=== PATIENT | female | born 1990 | race Caucasian/White ===

== ENCOUNTER 2016-08-25 23:30 | Emergency (ER) | payer OTHER ==
[~2016-08-25] VITALS: Ht 170.2 cm; Wt 59.7 kg
[~2016-08-25 23:30] MED LIST: ACID CONTROLLER20 MG PO; ADDERALL XR25 MG PO; ATARAX,VISTARIL50 MG PO; ATIVAN0.5 MG PO; BENZTROPINE ME0.5 MG PO; BENZTROPINE MESY1 MG PO; CARAFATE1 GM PO; CYMBALTA20 MG PO; FLEXERIL10 MG PO; GEODON60 MG PO; GEODON80 MG PO; HYDROXYZINE PAM50 MG PO; LEXAPRO20 MG PO; LITHATE5 MG PO; LITHIUM CARBON300 MG PO; LORATADINE10 M2; LORATADINE10 M2 PO; LORAZEPAM0.5 MG PO; MECLIZINE HCL25 MG PO; PEPCID20 MG PO; RISPERDAL1 MG PO; RISPERDAL2 MG PO; RISPERIDONE2 MG PO; SUMATRIPTAN SU100 MG PO; TOPAMAX100 MG PO; TOPIRAMATE100 MG PO; TOPIRAMATE25 MG PO; TRAZODONE HCL50 MG PO; ZANTAC150 MG PO; ZIPRASIDONE HCL40 MG PO; ZIPRASIDONE HCL60 MG PO; ZIPRASIDONE HCL80 MG PO; ZOLPIDEM TARTRA10 MG PO
[2016-08-26 00:18] LABS: CHLORIDE 107 mEq/L (99-109); POTASSIUM 4.2 mEq/L (3.7-5.4); SODIUM 141 mEq/L (136-147)
[2016-08-26 00:20] LABS: GLUCOSE 113 mg/dL (70-99)
[2016-08-26 00:21] LABS: ANION GAP 12 MEQ/L (2-14)
[2016-08-26 00:24] LABS: GFR ESTIMATE (CALCULATED) > 59 mL/min/
[2016-08-26 00:25] LABS: UREA NITROGEN (BUN) 10 mg/dL (9-23)
[2016-08-26 00:28] LABS: WHITE BLOOD COUNT 8.6 K/uL (4.1-10.2)
[2016-08-26 00:29] LABS: MCV 82.6 FL (83-99); MEAN PLAT.VOLUME 11.7 uM^3 (9.5-12.4); PLATELET COUNT 199 K/uL (156-360); RBC DIS.WIDTH-CV 11.8 % (11.8-14.6); RED BLOOD COUNT 4.59 M/uL (3.80-5.20)
[2016-08-26 00:30] LABS: TROP-I INTERPRETATION NEGATIVE; TROPONIN-I < 0.01 ng/mL (0.0-0.30)
[2016-08-26 00:38] LABS: HEMATOCRIT 38.1 % (36.0-46.0); MCH 30.4 PG (29.0-34.0); MCHC 36.7 G/DL (30.0-36.0)
[2016-08-26] MEDS ORDERED: REGLAN10 MG PO (02:31)
[2016-08-26 02:41] VITALS: BP 129/74
== END 2016-08-26 02:42 | disposition home or self-care (01) ==
LOC: RME 23:30 → EME 23:30 → RME 08-26 02:42
DX: F41.1 Generalized anxiety disorder (principal); R07.9 Chest pain, unspecified; R20.2 Paresthesia of skin; R51 Headache
CPT/HCPCS: 70450; 71020; 80048; 84484; 85027; 93005; 99281; 99284

== ENCOUNTER → 2016-08-27 | Outpatient (CLI) | payer OTHER ==
[~2016-08-27] VITALS: Ht 162.6 cm; Wt 59.9 kg
[~2016-08-27] MED LIST changes: +REGLAN10 MG PO
== END | disposition home or self-care (01) ==
LOC: AMB 13:23
PROC: 0DB68ZX Excision of Stomach, Via Natural or Artificial Opening Endoscopic, Diagnostic (ICD-10-PCS; principal; 2016-08-27)
DX: K29.70 Gastritis, unspecified, without bleeding (principal); R10.13 Epigastric pain; R14.2 Eructation; G40.909 Epilepsy, unspecified, not intractable, without status epilepticus
CPT/HCPCS: 88305; 88342 TC; B4087; J2250

== ENCOUNTER 2016-12-23 21:11 | Emergency (ER) | payer OTHER ==
[~2016-12-23] VITALS: Ht 170.2 cm; Wt 61.3 kg
[2016-12-23 21:54] LABS: ADD MIUA? YES; BILIRUBIN NEGATIVE; BLOOD NEGATIVE; COLOR STRAW ((YELLOW)); GLUCOSE (STRIP) NEGATIVE; KETONES NEGATIVE; LEUKOCYTES TRACE; NITRITE NEGATIVE; PROTEIN (STRIP) NEGATIVE; SPECIFIC GRAVITY 1.004 (1.000-1.030); UROBILINOGEN 0.2 MG/DL (0.2-1.0)
[2016-12-23 22:03] LABS: HEMATOCRIT 41.6 % (36.0-46.0); MCH 29.5 PG (29.0-34.0); MCHC 34.4 G/DL (30.0-36.0); MCV 85.8 FL (83-99); MEAN PLAT.VOLUME 11.4 uM^3 (9.5-12.4); PLATELET COUNT 186 K/uL (156-360); RBC DIS.WIDTH-CV 12.2 % (11.8-14.6); RBC DIS.WIDTH-SD 38.1 % (39-53); RED BLOOD COUNT 4.85 M/uL (3.80-5.20); WHITE BLOOD COUNT 10.2 K/uL (4.1-10.2)
[2016-12-23 22:11] LABS: CHLORIDE 105 mEq/L (99-109); POTASSIUM 3.8 mEq/L (3.7-5.4); SODIUM 138 mEq/L (136-147)
[2016-12-23 22:13] LABS: GLUCOSE 120 mg/dL (70-99)
[2016-12-23 22:14] LABS: ANION GAP 9 MEQ/L (2-14)
[2016-12-23 22:17] LABS: GFR ESTIMATE (CALCULATED) > 59 mL/min/
[2016-12-23 22:18] LABS: UREA NITROGEN (BUN) 6 mg/dL (9-23)
[2016-12-23 22:19] LABS: BACTERIA RARE /HPF; EPITHELIAL CELLS NONE SEEN /HPF; MUCUS NONE SEEN /LPF; RED BLOOD CELLS 0-5 /HPF (0-5); UCUL ADDED? NO; WHITE BLOOD CELLS 0-5 /HPF (0-5)
[2016-12-23 22:25] LABS: QUANTITATIVE HCG < 4.0 MIU/ML
[2016-12-24 00:53] VITALS: BP 137/98
== END 2016-12-24 00:31 | disposition home or self-care (01) ==
LOC: EME 21:11
PROVIDERS: Physician Assistant
DX: G40.909 Epilepsy, unspecified, not intractable, without status epilepticus (principal); Z88.1 Allergy status to other antibiotic agents; F25.9 Schizoaffective disorder, unspecified; F31.9 Bipolar disorder, unspecified
CPT/HCPCS: 80048; 81003; 84702; 85027; 99281; 99284; J2060

== ENCOUNTER 2017-01-03 21:46 | Emergency (ER) | payer OTHER ==
[~2017-01-03] VITALS: Ht 170.2 cm; Wt 62.7 kg
[2017-01-04] MEDS ORDERED: MEDROL DOSEPAK4 MG PO (00:24)
[2017-01-04 00:46] VITALS: BP 123/89
== END 2017-01-04 00:47 | disposition home or self-care (01) ==
LOC: EME 21:46
DX: M54.5 Low back pain (principal); G89.29 Other chronic pain; M79.604 Pain in right leg; M79.605 Pain in left leg; R11.0 Nausea
CPT/HCPCS: 99281; 99284

== ENCOUNTER → 2017-03-01 | Outpatient (CLI) | payer OTHER ==
[~2017-03-01] MED LIST changes: +MEDROL DOSEPAK4 MG PO
== END | disposition home or self-care (01) ==
LOC: NUC 07:51
DX: K31.84 Gastroparesis (principal)
CPT/HCPCS: 78264; A9541

== ENCOUNTER 2017-04-14 19:39 | Emergency (ER) | payer OTHER ==
[~2017-04-14] VITALS: Ht 170.2 cm; Wt 64.9 kg
[2017-04-14 20:26] LABS: HEMATOCRIT 38.7 % (36.0-46.0); MCH 29.5 PG (29.0-34.0); MCHC 34.4 G/DL (30.0-36.0); MCV 85.8 FL (83-99); MEAN PLAT.VOLUME 11.8 uM^3 (9.5-12.4); PLATELET COUNT 194 K/uL (156-360); RBC DIS.WIDTH-CV 11.8 % (11.8-14.6); RBC DIS.WIDTH-SD 36.5 % (39-53); RED BLOOD COUNT 4.51 M/uL (3.80-5.20); WHITE BLOOD COUNT 9.9 K/uL (4.1-10.2)
[2017-04-14 20:43] LABS: CHLORIDE 109 mEq/L (99-109); POTASSIUM 3.6 mEq/L (3.7-5.4); SODIUM 140 mEq/L (136-147)
[2017-04-14 20:45] LABS: GLUCOSE 125 mg/dL (70-99)
[2017-04-14 20:46] LABS: ANION GAP 8 MEQ/L (2-14)
[2017-04-14 20:47] LABS: TROP-I INTERPRETATION NEGATIVE; TROPONIN-I < 0.01 ng/mL (0.0-0.30)
[2017-04-14 20:49] LABS: GFR ESTIMATE (CALCULATED) > 59 mL/min/; UREA NITROGEN (BUN) 8 mg/dL (9-23)
[2017-04-14 21:53] LABS: D-DIMER ELISA < 150.00 ng/mLDDU (<230)
[2017-04-14 23:30] LABS: TROP-I INTERPRETATION NEGATIVE; TROPONIN-I < 0.01 ng/mL (0.0-0.30)
[2017-04-14] MEDS ORDERED: INDOCIN25 MG PO (23:39)
[2017-04-14] MEDS ORDERED: VALIUM5 MG PO (23:39)
[2017-04-15 00:06] VITALS: BP 138/93
== END 2017-04-15 00:11 | disposition home or self-care (01) ==
LOC: EME 19:39
PROVIDERS: Physician Assistant
DX: R07.89 Other chest pain (principal); M62.830 Muscle spasm of back; R06.02 Shortness of breath
CPT/HCPCS: 71020; 80048; 84484; 85027; 85379; 93005; 99281; 99284

== ENCOUNTER 2017-05-17 15:00 | Emergency (ER) | payer OTHER ==
[~2017-05-17] VITALS: Ht 170.2 cm; Wt 65.8 kg
[~2017-05-17 15:00] MED LIST changes: +INDOCIN25 MG PO; +VALIUM5 MG PO
[2017-05-17 22:14] LABS: ADD MIUA? NO; BILIRUBIN NEGATIVE; BLOOD NEGATIVE; COLOR STRAW ((YELLOW)); GLUCOSE (STRIP) NEGATIVE; KETONES NEGATIVE; LEUKOCYTES NEGATIVE; NITRITE NEGATIVE; PROTEIN (STRIP) NEGATIVE; SPECIFIC GRAVITY 1.005 (1.000-1.030); UROBILINOGEN 0.2 MG/DL (0.2-1.0)
[2017-05-17 22:20] LABS: HEMATOCRIT 37.4 % (36.0-46.0); MCH 29.7 PG (29.0-34.0); MCHC 34.5 G/DL (30.0-36.0); MEAN PLAT.VOLUME 12.2 uM^3 (9.5-12.4); PLATELET COUNT 178 K/uL (156-360); RBC DIS.WIDTH-CV 11.9 % (11.8-14.6); RBC DIS.WIDTH-SD 37.2 % (39-53); RED BLOOD COUNT 4.35 M/uL (3.80-5.20); WHITE BLOOD COUNT 8.2 K/uL (4.1-10.2)
[2017-05-17 22:21] LABS: CHLORIDE 110 mEq/L (99-109); POTASSIUM 3.7 mEq/L (3.7-5.4); SODIUM 140 mEq/L (136-147)
[2017-05-17 22:24] LABS: GLUCOSE 114 mg/dL (70-99)
[2017-05-17 22:24] LABS: AMPHETAMINE NEGATIVE (500 ng/mL); BARBITURATES NEGATIVE (200 ng/mL); BENZODIAZEPINES NEGATIVE (150 ng/mL); COCAINE NEGATIVE (150 ng/mL); INTERNAL CONTROLS VALID? YES; METHADONE NEGATIVE (200 ng/mL); METHAMPHETAMINE NEGATIVE (500 ng/mL); OPIATES (MORPHINE) NEGATIVE (100 ng/mL); OXYCODONE NEGATIVE (100 ng/mL); PHENCYCLIDINE NEGATIVE (25 ng/mL); PROPOXYPHENE NEGATIVE (300 ng/mL); THC CANNABINOIDS NEGATIVE (50 ng/mL); TRICYCLIC ANTIDEPRESSANTS NEGATIVE (300 ng/mL)
[2017-05-17 22:25] LABS: ANION GAP 6 MEQ/L (2-14); TOTAL BILIRUBIN 0.2 mg/dL (0.0-1.0)
[2017-05-17 22:26] LABS: SERUM ETHYL ALCOHOL < 10 mg/dL
[2017-05-17 22:27] LABS: ALKALINE PHOSPHATASE 63 IU/L (3-129); GFR ESTIMATE (CALCULATED) > 59 mL/min/
[2017-05-17 22:28] LABS: UREA NITROGEN (BUN) 8 mg/dL (9-23)
[2017-05-17 22:38] LABS: QUANTITATIVE HCG < 4.0 MIU/ML
[2017-05-17] MEDS ORDERED: KEPPRA250 MG PO (22:44)
[2017-05-17] MEDS ORDERED: NORCO 5/3251 TABLET PO (22:45)
[2017-05-17] MEDS ORDERED: PERCOCET 5/31 TABLET PO (22:46)
[2017-05-17] MEDS ORDERED: CLEOCIN300 MG PO (22:47)
[2017-05-18 13:41] VITALS: BP 101/67
== END 2017-05-18 13:43 ==
LOC: EME 15:00
PROVIDERS: Emergency Medicine
DX: F41.9 Anxiety disorder, unspecified (principal); R45.851 Suicidal ideations; F25.9 Schizoaffective disorder, unspecified; G40.89 Other seizures; F90.9 Attention-deficit hyperactivity disorder, unspecified type; K21.9 Gastro-esophageal reflux disease without esophagitis
CPT/HCPCS: 80053; 81003; 84702; 85027; 90837; 99281; 99285; G0480

== ENCOUNTER 2017-06-25 23:56 | Emergency (ER) | payer OTHER ==
[~2017-06-25] VITALS: Ht 170.2 cm; Wt 66.3 kg
[~2017-06-25 23:56] MED LIST changes: +CLEOCIN300 MG PO; +KEPPRA250 MG PO; +NORCO 5/3251 TABLET PO; +PERCOCET 5/31 TABLET PO
[2017-06-26 00:23] LABS: MCH 29.9 PG (29.0-34.0); MCHC 35.9 G/DL (30.0-36.0); MCV 83.2 FL (83-99); MEAN PLAT.VOLUME 12.1 uM^3 (9.5-12.4); PLATELET COUNT 203 K/uL (156-360); RBC DIS.WIDTH-CV 11.9 % (11.8-14.6); RBC DIS.WIDTH-SD 35.8 % (39-53); RED BLOOD COUNT 4.69 M/uL (3.80-5.20)
[2017-06-26 00:34] LABS: CHLORIDE 107 mEq/L (99-109); POTASSIUM 3.3 mEq/L (3.7-5.4); SODIUM 137 mEq/L (136-147)
[2017-06-26 00:37] LABS: GLUCOSE 110 mg/dL (70-99)
[2017-06-26 00:38] LABS: ANION GAP 12 MEQ/L (2-14)
[2017-06-26 00:39] LABS: TOTAL BILIRUBIN 0.4 mg/dL (0.0-1.0)
[2017-06-26 00:40] LABS: ALKALINE PHOSPHATASE 65 IU/L (3-129); GFR ESTIMATE (CALCULATED) > 59 mL/min/
[2017-06-26 00:41] LABS: UREA NITROGEN (BUN) 8 mg/dL (9-23)
[2017-06-26 00:49] LABS: QUANTITATIVE HCG < 4.0 MIU/ML
[2017-06-26 01:35] LABS: ADD MIUA? YES; BILIRUBIN NEGATIVE; BLOOD NEGATIVE; COLOR YELLOW ((YELLOW)); GLUCOSE (STRIP) NEGATIVE; KETONES NEGATIVE; LEUKOCYTES LARGE; NITRITE NEGATIVE; PROTEIN (STRIP) NEGATIVE; SPECIFIC GRAVITY 1.011 (1.000-1.030); UROBILINOGEN 0.2 MG/DL (0.2-1.0)
[2017-06-26 01:53] LABS: BACTERIA 1+ /HPF; EPITHELIAL CELLS 2+ /HPF; MUCUS TRACE /LPF; RED BLOOD CELLS 0-5 /HPF (0-5); UCUL ADDED? YES; WHITE BLOOD CELLS 15-20 /HPF (0-5)
[2017-06-26] MEDS ORDERED: ZOFRAN4 MG PO (02:04)
[2017-06-26] MEDS ORDERED: BACTRIM,SEPT1 TABLET PO (02:04)
[2017-06-26] MEDS ORDERED: NORCO 5/3251 TABLET PO (02:08)
[2017-06-26 02:24] VITALS: BP 120/81
== END 2017-06-26 02:26 | disposition home or self-care (01) ==
LOC: EME 23:56
DX: N30.90 Cystitis, unspecified without hematuria (principal); L29.9 Pruritus, unspecified; T40.2X5A Adverse effect of other opioids, initial encounter; R11.2 Nausea with vomiting, unspecified
CPT/HCPCS: 80053; 81003; 84702; 85027; 87086; 99281; 99284

== ENCOUNTER 2017-07-11 21:50 | Emergency (ER) | payer OTHER ==
[~2017-07-11] VITALS: Ht 170.2 cm; Wt 67.8 kg
[~2017-07-11 21:50] MED LIST changes: +BACTRIM,SEPT1 TABLET PO; +ZOFRAN4 MG PO
[2017-07-11 23:21] LABS: HEMATOCRIT 36.3 % (36.0-46.0); MCH 29.6 PG (29.0-34.0); MCHC 34.2 G/DL (30.0-36.0); MCV 86.6 FL (83-99); MEAN PLAT.VOLUME 12.1 uM^3 (9.5-12.4); PLATELET COUNT 163 K/uL (156-360); RBC DIS.WIDTH-CV 11.8 % (11.8-14.6); RBC DIS.WIDTH-SD 37.3 % (39-53); RED BLOOD COUNT 4.19 M/uL (3.80-5.20); WHITE BLOOD COUNT 7.9 K/uL (4.1-10.2)
[2017-07-11 23:29] LABS: CHLORIDE 109 mEq/L (99-109); POTASSIUM 3.6 mEq/L (3.7-5.4); SODIUM 140 mEq/L (136-147)
[2017-07-11 23:31] LABS: GLUCOSE 128 mg/dL (70-99)
[2017-07-11 23:33] LABS: ANION GAP 11 MEQ/L (2-14)
[2017-07-11 23:35] LABS: GFR ESTIMATE (CALCULATED) > 59 mL/min/
[2017-07-11 23:36] LABS: UREA NITROGEN (BUN) 9 mg/dL (9-23)
[2017-07-12 00:49] LABS: ADD MIUA? NO; BILIRUBIN NEGATIVE; BLOOD NEGATIVE; COLOR STRAW ((YELLOW)); GLUCOSE (STRIP) NEGATIVE; KETONES NEGATIVE; LEUKOCYTES NEGATIVE; NITRITE NEGATIVE; PROTEIN (STRIP) NEGATIVE; SPECIFIC GRAVITY 1.016 (1.000-1.030); UCUL ADDED? NO; UROBILINOGEN 0.2 MG/DL (0.2-1.0)
[2017-07-12] MEDS ORDERED: ULTRACET1 TABLET PO (01:21)
[2017-07-12] MEDS ORDERED: COLACE100 MG PO (01:21)
[2017-07-12 01:32] VITALS: BP 125/65
== END 2017-07-12 01:33 | disposition home or self-care (01) ==
LOC: EME 21:50
PROVIDERS: Physician Assistant
DX: K62.89 Other specified diseases of anus and rectum (principal); M54.9 Dorsalgia, unspecified
CPT/HCPCS: 74177; 80048; 81003; 85027; 99281; 99284

== ENCOUNTER 2017-09-28 02:14 | Emergency (ER) | payer OTHER ==
[~2017-09-28] VITALS: Ht 175.3 cm; Wt 68.0 kg
[~2017-09-28 02:14] MED LIST changes: +COLACE100 MG PO; +ULTRACET1 TABLET PO
[2017-09-28 02:23] VITALS: BP 118/82
[2017-09-28 03:39] LABS: BASOPHIL (%) 0.7 % (0-1); BASOPHIL COUNT 0.1 K/uL (0-0.1); EOSINOPHIL (%) 1.7 % (0-5); EOSINOPHIL COUNT 0.2 K/uL (0-0.3); HEMATOCRIT 38.7 % (36.0-46.0); HEMOGLOBIN 13.9 G/DL (11.9-15.5); IMMATURE GRANULOCYTE (%) 0.4 % (0.0-0.7); LYMPHOCYTE (%) 15.4 % (15-42); LYMPHOCYTE COUNT 1.9 K/uL (1.0-2.8); MCH 29.9 PG (29.0-34.0); MCHC 35.9 G/DL (30.0-36.0); MCV 83.2 FL (83-99); MONOCYTE (%) 5.8 % (3-12); MONOCYTE COUNT 0.7 K/uL (0-0.8); NEUTROPHIL COUNT 9.1 K/uL (1.8-6.4); PLATELET COUNT 191 K/uL (156-360); RBC DIS.WIDTH-CV 12.3 % (11.8-14.6); RBC DIS.WIDTH-SD 37.1 % (39-53); RED BLOOD COUNT 4.65 M/uL (3.80-5.20)
[2017-09-28 03:50] LABS: ALBUMIN 4.6 g/dL (3.2-4.8); CHLORIDE 106 mEq/L (99-109); POTASSIUM 3.8 mEq/L (3.7-5.4); SODIUM 140 mEq/L (136-147)
[2017-09-28 03:52] LABS: GLUCOSE 119 mg/dL (70-99)
[2017-09-28 03:53] LABS: TOTAL PROTEIN 7.6 g/dL (6.4-8.3)
[2017-09-28 03:54] LABS: TOTAL BILIRUBIN 0.5 mg/dL (0.0-1.0)
[2017-09-28 03:56] LABS: ALKALINE PHOSPHATASE 71 IU/L (3-129); CREATININE 0.9 mg/dL (0.6-1.3); GFR ESTIMATE (CALCULATED) > 59 mL/min/
[2017-09-28 03:57] LABS: UREA NITROGEN (BUN) 10 mg/dL (9-23)
[2017-09-28 03:58] LABS: AST (GOT) 15 IU/L (2-34); DIRECT BILIRUBIN 0.2 mg/dL (0.0-0.3)
[2017-09-28 03:59] LABS: ALT (GPT) 13 IU/L (3-49); LIPASE 51 U/L (1.0-51.0)
[2017-09-28 04:25] LABS: APPEARANCE SL.HAZY ((CLEAR)); BILIRUBIN NEGATIVE; BLOOD SMALL; COLOR YELLOW ((YELLOW)); GLUCOSE (STRIP) NEGATIVE; KETONES NEGATIVE; LEUKOCYTES NEGATIVE; NITRITE NEGATIVE; PROTEIN (STRIP) NEGATIVE; SPECIFIC GRAVITY 1.008 (1.000-1.030); UROBILINOGEN 0.2 MG/DL (0.2-1.0)
[2017-09-28 04:30] LABS: BACTERIA RARE /HPF; EPITHELIAL CELLS RARE /HPF; MUCUS NONE SEEN /LPF; RED BLOOD CELLS 0-5 /HPF (0-5); UCUL ADDED? NO; WHITE BLOOD CELLS 0-5 /HPF (0-5)
[2017-09-28] MEDS ORDERED: ZOFRAN4 MG PO (05:10)
== END 2017-09-28 05:47 | disposition home or self-care (01) ==
LOC: EME 02:14
PROVIDERS: Emergency Medicine
DX: R10.30 Lower abdominal pain, unspecified (principal); R11.10 Vomiting, unspecified; F41.0 Panic disorder [episodic paroxysmal anxiety]; K21.9 Gastro-esophageal reflux disease without esophagitis; K58.9 Irritable bowel syndrome, unspecified; G40.909 Epilepsy, unspecified, not intractable, without status epilepticus; F32.9 Major depressive disorder, single episode, unspecified; F25.9 Schizoaffective disorder, unspecified; F90.9 Attention-deficit hyperactivity disorder, unspecified type
CPT/HCPCS: 74176; 80048; 80076; 81003; 83690; 85025; 99281; 99284

== ENCOUNTER → 2017-10-10 | Outpatient (CLI) | payer OTHER ==
[~2017-10-10] VITALS: Ht 172.7 cm; Wt 68.0 kg
[~2017-10-10] MED LIST changes: +AMBIEN5 MG PO; -KEPPRA250 MG PO; +KEPPRA750 MG PO; +LINZESS72 MCG PO; +MIRALAX17 GM PO; +NEXIUM40 MG PO; +RELAFEN500 M1 PO; +VITAMIN C W/AC500 M1 PO; +ZANAFLEX2 M1 PO
== END | disposition home or self-care (01) ==
LOC: AMB 10:43
PROC: 0DBH8ZX Excision of Cecum, Via Natural or Artificial Opening Endoscopic, Diagnostic (ICD-10-PCS; principal; 2017-10-10)
DX: K63.5 Polyp of colon (principal); K59.00 Constipation, unspecified; K64.8 Other hemorrhoids; K21.9 Gastro-esophageal reflux disease without esophagitis; Z80.3 Family history of malignant neoplasm of breast; Z83.3 Family history of diabetes mellitus
CPT/HCPCS: 88305; J2250

== ENCOUNTER 2017-10-17 18:12 | Inpatient (IN) | payer OTHER ==
[~2017-10-17] VITALS: Ht 170.2 cm; Wt 65.5 kg
[~2017-10-17 18:12] MED LIST changes: +LINZESS145 MCG PO; -LINZESS72 MCG PO
[2017-10-17 19:19] LABS: BASOPHIL (%) 0.8 % (0-1); BASOPHIL COUNT 0.1 K/uL (0-0.1); EOSINOPHIL (%) 1.9 % (0-5); EOSINOPHIL COUNT 0.2 K/uL (0-0.3); HEMATOCRIT 39.4 % (36.0-46.0); HEMOGLOBIN 13.8 G/DL (11.9-15.5); IMMATURE GRANULOCYTE (%) 0.4 % (0.0-0.7); LYMPHOCYTE (%) 21.7 % (15-42); LYMPHOCYTE COUNT 2.2 K/uL (1.0-2.8); MCH 29.7 PG (29.0-34.0); MCV 84.9 FL (83-99); MONOCYTE (%) 6.7 % (3-12); MONOCYTE COUNT 0.7 K/uL (0-0.8); NEUTROPHIL (%) 68.5 % (45-76); PLATELET COUNT 203 K/uL (156-360); RBC DIS.WIDTH-CV 12.5 % (11.8-14.6); RBC DIS.WIDTH-SD 38.5 % (39-53); RED BLOOD COUNT 4.64 M/uL (3.80-5.20); WHITE BLOOD COUNT 10.3 K/uL (4.1-10.2)
[2017-10-17 19:30] LABS: CHLORIDE 107 mEq/L (99-109); POTASSIUM 3.8 mEq/L (3.7-5.4); SODIUM 137 mEq/L (136-147)
[2017-10-17 19:32] LABS: GLUCOSE 99 mg/dL (70-99)
[2017-10-17 19:36] LABS: CREATININE 0.9 mg/dL (0.6-1.3); GFR ESTIMATE (CALCULATED) > 59 mL/min/
[2017-10-17 19:37] LABS: UREA NITROGEN (BUN) 12 mg/dL (9-23)
[2017-10-17 19:44] LABS: QUANTITATIVE HCG < 4.0 MIU/ML
[2017-10-17 20:07] LABS: APPEARANCE CLOUDY ((CLEAR)); BILIRUBIN NEGATIVE; BLOOD NEGATIVE; COLOR YELLOW ((YELLOW)); GLUCOSE (STRIP) NEGATIVE; KETONES 20; LEUKOCYTES LARGE; NITRITE NEGATIVE; PROTEIN (STRIP) NEGATIVE; SPECIFIC GRAVITY 1.026 (1.000-1.030); UROBILINOGEN 0.2 MG/DL (0.2-1.0)
[2017-10-17 20:50] LABS: RED BLOOD CELLS RARE /HPF (0-5)
[2017-10-17 20:51] LABS: BACTERIA 1+ /HPF; EPITHELIAL CELLS 1+ /HPF; MUCUS TRACE /LPF; UCUL ADDED? YES; WHITE BLOOD CELLS 40-50 /HPF (0-5)
[2017-10-17 20:52] LABS: CALCIUM OXALATE CRYSTALS RARE /HPF
[2017-10-17] MEDS ORDERED: CLEOCIN300 MG PO (21:46)
[2017-10-17] MEDS ORDERED: LYRICA50 MG PO (21:46)
[2017-10-17 22:02] LABS: HEMATOCRIT 31.5 % (36.0-46.0); MCV 84.7 FL (83-99)
[2017-10-17 22:42] LABS: HEMOGLOBIN 11.1 G/DL (11.9-15.5)
[2017-10-18 01:04] LABS: ALBUMIN 4.5 g/dL (3.2-4.8)
[2017-10-18 01:07] LABS: TOTAL PROTEIN 7.8 g/dL (6.4-8.3)
[2017-10-18 01:09] LABS: TOTAL BILIRUBIN 0.4 mg/dL (0.0-1.0)
[2017-10-18 01:10] LABS: ALKALINE PHOSPHATASE 74 IU/L (3-129)
[2017-10-18 01:12] LABS: AST (GOT) 20 IU/L (2-34); DIRECT BILIRUBIN 0.2 mg/dL (0.0-0.3)
[2017-10-18 01:13] LABS: ALT (GPT) 14 IU/L (3-49)
[2017-10-18 01:37] VITALS: BP 102/68
[2017-10-18 03:02] VITALS: BP 99/57
[2017-10-18 03:24] LABS: C DIFF TOXIN NEGATIVE (NEGATIVE)
[2017-10-18 05:52] LABS: INTER. NORMALIZED RATIO 1.2
[2017-10-18 05:55] LABS: PTT 30.7 SEC (25-37)
[2017-10-18 06:11] LABS: CHLORIDE 111 MEQ/L (99-109); CREATININE 0.7 MG/DL (0.6-1.3); GFR ESTIMATE (CALCULATED) > 59 mL/min/; GLUCOSE 81 mg/dL (70-99); POTASSIUM 3.6 MEQ/L (3.7-5.4); SODIUM 137 MEQ/L (136-147); UREA NITROGEN (BUN) 13 mg/dL (9-23)
[2017-10-18 07:30] VITALS: BP 102/53
[2017-10-18 07:46] LABS: PHOSPHORUS 2.7 mg/dL (2.5-4.9)
[2017-10-18 08:07] LABS: HEMATOCRIT 25.6 % (36.0-46.0); MCH 29.3 PG (29.0-34.0); MCV 86.2 FL (83-99); RBC DIS.WIDTH-CV 12.6 % (11.8-14.6); RBC DIS.WIDTH-SD 39.8 % (39-53); WHITE BLOOD COUNT 8.3 K/uL (4.1-10.2)
[2017-10-18 08:12] LABS: HEMOGLOBIN 8.7 G/DL (11.9-15.5); RED BLOOD COUNT 2.97 M/uL (3.80-5.20)
[2017-10-18 08:19] LABS: PLAT.SUFFICIENCY DECREASED; PLATELET COUNT 138 K/uL (156-360)
[2017-10-18 10:09] LABS: HEMATOCRIT 26.2 % (36.0-46.0); HEMOGLOBIN 8.9 G/DL (11.9-15.5); MCV 86.5 FL (83-99)
[2017-10-18 14:14] LABS: HEMATOCRIT 27.3 % (36.0-46.0); HEMOGLOBIN 9.4 G/DL (11.9-15.5); MCV 88.1 FL (83-99)
[2017-10-18 14:30] VITALS: BP 103/55
[2017-10-18 16:59] LABS: HEMATOCRIT 27.3 % (36.0-46.0); HEMOGLOBIN 9.2 G/DL (11.9-15.5); MCV 86.9 FL (83-99)
[2017-10-18 19:10] VITALS: BP 108/64
[2017-10-18 22:21] LABS: HEMATOCRIT 26.6 % (36.0-46.0); HEMOGLOBIN 9.1 G/DL (11.9-15.5); MCV 86.9 FL (83-99)
[2017-10-18 23:30] VITALS: BP 113/64
[2017-10-19 03:15] VITALS: BP 100/56
[2017-10-19 05:55] LABS: BASOPHIL (%) 0.6 % (0-1); EOSINOPHIL (%) 3.2 % (0-5); EOSINOPHIL COUNT 0.2 K/uL (0-0.3); HEMATOCRIT 23.8 % (36.0-46.0); HEMOGLOBIN 8.2 G/DL (11.9-15.5); IMMATURE GRANULOCYTE (%) 0.6 % (0.0-0.7); LYMPHOCYTE (%) 30.4 % (15-42); LYMPHOCYTE COUNT 1.9 K/uL (1.0-2.8); MCH 30.6 PG (29.0-34.0); MCHC 34.5 G/DL (30.0-36.0); MCV 88.8 FL (83-99); MONOCYTE (%) 8.8 % (3-12); MONOCYTE COUNT 0.5 K/uL (0-0.8); NEUTROPHIL (%) 56.4 % (45-76); NEUTROPHIL COUNT 3.5 K/uL (1.8-6.4); PLATELET COUNT 117 K/uL (156-360); RBC DIS.WIDTH-SD 41.6 % (39-53); RED BLOOD COUNT 2.68 M/uL (3.80-5.20); WHITE BLOOD COUNT 6.2 K/uL (4.1-10.2)
[2017-10-19 06:02] LABS: CHLORIDE 115 MEQ/L (99-109); CREATININE 0.6 MG/DL (0.6-1.3); GFR ESTIMATE (CALCULATED) > 59 mL/min/; GLUCOSE 81 mg/dL (70-99); POTASSIUM 3.7 MEQ/L (3.7-5.4); SODIUM 140 MEQ/L (136-147); UREA NITROGEN (BUN) 5 mg/dL (9-23)
[2017-10-19 08:50] VITALS: BP 103/59
[2017-10-19 11:44] VITALS: BP 104/59
[2017-10-19 11:50] LABS: HEMATOCRIT 25.3 % (36.0-46.0); HEMOGLOBIN 8.6 G/DL (11.9-15.5); MCV 86.9 FL (83-99)
[2017-10-19 16:09] VITALS: BP 100/55
[2017-10-19 19:00] VITALS: BP 106/59
[2017-10-19 22:30] VITALS: BP 99/54
[2017-10-20 04:00] VITALS: BP 110/57
[2017-10-20 05:29] LABS: BASOPHIL (%) 0.8 % (0-1); BASOPHIL COUNT 0.1 K/uL (0-0.1); EOSINOPHIL (%) 3.6 % (0-5); EOSINOPHIL COUNT 0.3 K/uL (0-0.3); HEMATOCRIT 25.7 % (36.0-46.0); HEMOGLOBIN 8.7 G/DL (11.9-15.5); IMMATURE GRANULOCYTE (%) 0.7 % (0.0-0.7); LYMPHOCYTE (%) 23.2 % (15-42); LYMPHOCYTE COUNT 1.7 K/uL (1.0-2.8); MCH 29.8 PG (29.0-34.0); MCHC 33.9 G/DL (30.0-36.0); MONOCYTE (%) 8.7 % (3-12); MONOCYTE COUNT 0.6 K/uL (0-0.8); NEUTROPHIL COUNT 4.6 K/uL (1.8-6.4); PLATELET COUNT 134 K/uL (156-360); RBC DIS.WIDTH-SD 41.1 % (39-53); RED BLOOD COUNT 2.92 M/uL (3.80-5.20); WHITE BLOOD COUNT 7.2 K/uL (4.1-10.2)
[2017-10-20 07:00] VITALS: BP 108/61
[2017-10-20] MEDS ORDERED: FERROUS SULFAT325 MG PO (07:33)
== END 2017-10-20 11:50 | disposition home or self-care (01) | DRG 920 ==
LOC: EME 18:12 → EDOF 10-18 00:17 → 4EAST 10-18 00:17 → ENRESERV 10-18 00:18 → 4EAST 10-18 01:09
PROVIDERS: Emergency Medicine; Hospitalist; Internal Medicine Gastroenterology
PROC: 0W3P8ZZ Control Bleeding in Gastrointestinal Tract, Via Natural or Artificial Opening Endoscopic (ICD-10-PCS; principal; 2017-10-18)
DX: K91.840 Postprocedural hemorrhage of a digestive system organ or structure following a digestive system procedure (principal); Y83.8 Other surgical procedures as the cause of abnormal reaction of the patient, or of later complication, without mention of misadventure at the time of the procedure; K21.9 Gastro-esophageal reflux disease without esophagitis; K58.9 Irritable bowel syndrome, unspecified; G40.909 Epilepsy, unspecified, not intractable, without status epilepticus; D62 Acute posthemorrhagic anemia; F31.9 Bipolar disorder, unspecified; M54.12 Radiculopathy, cervical region; F41.9 Anxiety disorder, unspecified
CPT/HCPCS: 74177; 80048; 80069; 80076; 81003; 84702; 85014; 85018; 85025; 85027; 85610; 85730; 86850; 86900; 86901; 86920; 87086 GA; 87493; 99281; 99285; J0744; J2250; J2405; J7030; J7040

== ENCOUNTER 2017-12-10 20:39 | Emergency (ER) | payer OTHER ==
[~2017-12-10] VITALS: Ht 170.2 cm; Wt 70.1 kg
[~2017-12-10 20:39] MED LIST changes: +FERROUS SULFAT325 MG PO; +LYRICA50 MG PO
[2017-12-10 21:23] LABS: HEMATOCRIT 34.3 % (36.0-46.0); MCV 85.8 FL (83-99); PLATELET COUNT 174 K/uL (156-360); RBC DIS.WIDTH-CV 11.7 % (11.8-14.6); RBC DIS.WIDTH-SD 36.6 % (39-53); WHITE BLOOD COUNT 8.4 K/uL (4.1-10.2)
[2017-12-10 21:31] LABS: CHLORIDE 111 mEq/L (99-109); POTASSIUM 3.7 mEq/L (3.7-5.4); SODIUM 141 mEq/L (136-147)
[2017-12-10 21:33] LABS: GLUCOSE 106 mg/dL (70-99)
[2017-12-10 21:35] LABS: TOTAL BILIRUBIN 0.2 mg/dL (0.0-1.0)
[2017-12-10 21:37] LABS: ALKALINE PHOSPHATASE 58 IU/L (3-129); CREATININE 0.8 mg/dL (0.6-1.3); GFR ESTIMATE (CALCULATED) > 59 mL/min/
[2017-12-10 21:38] LABS: UREA NITROGEN (BUN) 10 mg/dL (9-23)
[2017-12-10 21:39] LABS: AST (GOT) 14 IU/L (2-34)
[2017-12-10 21:40] LABS: ALT (GPT) 11 IU/L (3-49)
[2017-12-10 22:34] VITALS: BP 127/83
== END 2017-12-10 22:35 | disposition home or self-care (01) ==
LOC: EME 20:39 → EXP 20:39
PROVIDERS: Nurse Practitioner Family
DX: K62.5 Hemorrhage of anus and rectum (principal); K50.90 Crohn's disease, unspecified, without complications; K58.9 Irritable bowel syndrome, unspecified; G43.909 Migraine, unspecified, not intractable, without status migrainosus; R56.9 Unspecified convulsions; F90.9 Attention-deficit hyperactivity disorder, unspecified type; F32.9 Major depressive disorder, single episode, unspecified; F31.9 Bipolar disorder, unspecified; F25.9 Schizoaffective disorder, unspecified; Z88.1 Allergy status to other antibiotic agents
CPT/HCPCS: 74177; 80053; 85027; 99281; 99284; J7030